=== PATIENT | male | born 1985 | race Two or more races ===

== ENCOUNTER → 2018-08-01 | Outpatient (CLI) | payer OTHER | END | disposition home or self-care (01) | LOC: RAD 12:38 | PROVIDERS: ATTEND Family Medicine Adult Medicine | DX: S83.242A Other tear of medial meniscus, current injury, left knee, initial encounter (principal); X58.XXXA Exposure to other specified factors, initial encounter; Y93.89 Activity, other specified; Y92.89 Other specified places as the place of occurrence of the external cause; Y99.8 Other external cause status ==